=== PATIENT | female | born 1955 | race Asian ===

== ENCOUNTER 2020-02-09 08:02 | Emergency (ER) | payer OTHER, SELFPAY ==
[~2020-02-09] VITALS: Ht 167.6 cm; Wt 99.8 kg
[2020-02-09 08:02] VITALS: BP_SYST 110
--- NOTE | 2020-02-09 08:02 | NUR ---
BROUGHT IN BY [facility]ED, REPORT GIVEN TO JAVIER
--- NOTE | 2020-02-09 08:10 | NUR ---
Patient presented to ER C/O Abdominal pain. Patient BIB BLS afebrile, skin pink & warm, nausea & vomiting, denies diarrhea, pain 9/10. Patient called ems from home for severe abdominal pain, PT states "it feels the way my Gallbladder hurt before surgery". PT reportsgall bladder Sx December 2019.
--- NOTE | 2020-02-09 08:25 | NUR ---
ER Dr. Elam at bedside examining patient.
[2020-02-09] MEDS ORDERED: NACL 0.9% 1,000 ML IV ONE (08:30)
[2020-02-09] MEDS ORDERED: MORPHINE 4 MG/ML INJ. SYRINGE IVP ONE ×2 (08:30→17:15)
[2020-02-09] MEDS ORDERED: FAMOTIDINE PF 20 MG/2 ML VIAL IVP ONE (08:30)
[2020-02-09] MEDS ORDERED: ONDANSETRON HCL 4 MG/2 ML VIAL IVP ONE ×2 (08:30→12:00)
--- NOTE | 2020-02-09 08:50 | NUR ---
IV start unsuccessful x2. Informed cupola charger insulation IV start needed.
[2020-02-09 08:52] LABS: BASOPHILS % (AUTO) 0.4 % (0.0-2.0); EOSINOPHILS % (AUTO) 0.1 % (0.0-4.0); HEMOGLOBIN 15.1 g/dL (12.0-16.0); LYMPHOCYTES # (AUTO) 1.5 K/uL (1.0-5.5); LYMPHOCYTES % (AUTO) 13.2 % (20.5-51.5); MEAN CORPUSCULAR HEMOGLOBIN 28 pg (27-31); MEAN CORPUSCULAR HGB CONC 32 % (32-36); MEAN CORPUSCULAR VOLUME 86 fL (79.0-98.0); MONOCYTES # (AUTO) 0.6 K/uL (0.0-1.0); MONOCYTES % (AUTO) 5.2 % (1.7-9.3); NEUTROPHILS # (AUTO) 9.1 K/uL (1.8-7.7); NEUTROPHILS % (AUTO) 81.1 % (40.0-70.0); PLATELET COUNT (AUTO) 166 K/uL (130-430); RED CELL DISTRIBUTION WIDTH 14.8 % (9.0-15.0); WHITE BLOOD COUNT (AUTO) 11.2 K/uL (4.8-10.8)
[2020-02-09 09:00] LABS: CALCIUM 8.9 mg/dL (8.4-11.0); CREATININE 0.72 mg/dL (0.55-1.30); POTASSIUM 3.9 mmol/L (3.5-5.1)
[2020-02-09 09:07] LABS: ALBUMIN 3.4 g/dL (3.4-4.8)
--- NOTE | 2020-02-09 09:20 | NUR ---
# 20 gauge angiocath placed to right forearm . Use of asceptic technique. Opsite placed over site. Blood return noted. Blood for lab drawn from site. Flushed with 10 cc of normal saline. No evidence of infiltration noted. Patient tolerated well.
[2020-02-09] MEDS ORDERED: PIPERACILLIN/TAZO 3.375 GM in NS 50 ML IV ONE (09:30)
--- NOTE | 2020-02-09 09:40 | NUR ---
[employer] kaufman in ED - 02/09/20 at 1036 by SDEDTD IV start unsuccessful x2. Informed charge lpn IV start needed.
[2020-02-09] MEDS ORDERED: PIPERACILLIN/TAZOBACTAM 3.375 GM/VIAL (ZOSYN) IV ONE (09:56)
--- NOTE | 2020-02-09 09:58 | NUR ---
Radiology staff at for ultrasound.
[2020-02-09 10:08] LABS: BILIRUBIN,URINE 2+ (NEGATIVE); BLOOD, URINE NEGATIVE (NEGATIVE); CLARITY/URINE SL CLOUDY (CLEAR); COLOR,URINE YELLOW (YELLOW); GLUCOSE,URINE NEGATIVE (NEGATIVE); KETONES,URINE NEGATIVE (NEGATIVE); LEUKOCYTE ESTERASE ,URINE 2+ (NEGATIVE); NITRITE, URINE NEGATIVE (NEGATIVE); PROTEIN URINE TRACE (NEGATIVE)
[2020-02-09 10:17] LABS: BACTERIA,URINE FEW /HPF (None Seen)
[2020-02-09] MEDS ORDERED: hydrALAZINE HCL 20 MG/ML VIAL IVP ONE ×2 (10:45→19:45)
[2020-02-09] MEDS ORDERED: hydrALAZINE HCL 20 MG/ML VIAL ONE (10:46)
--- NOTE | 2020-02-09 11:20 | NUR ---
[facility]
--- NOTE | 2020-02-09 11:39 | NUR ---
Patient reports pain 10/10, made Dr Elam aware.
--- NOTE | 2020-02-09 11:45 | NUR ---
ER Dr. Elam at bedside examining patient.
[2020-02-09] MEDS ORDERED: fentaNYL CITRATE/PF 100 MCG/2 ML AMP IVP ONE (12:00)
--- NOTE | 2020-02-09 12:10 | NUR ---
Report to Christiane JURADO
--- NOTE | 2020-02-09 12:26 | NUR ---
Pt medicated for pain as ordered, well tolerated.
--- NOTE | 2020-02-09 12:39 | NUR ---
SPOKE TO KENNY, PT SISTER, REQUESTED UPDATE REGARDING PT STATUS. [phone]
--- NOTE | 2020-02-09 14:25 | NUR ---
PT awake sitting up in [facility].
--- NOTE | 2020-02-09 14:41 | NUR ---
SPOKE TO ALLIE OREILLY EPRP, STATED [facility] OF [facility] IS REQUESTING FACESHEET OF PT. FAX: [phone]
--- NOTE | 2020-02-09 16:30 | NUR ---
Pt awake and requesting update on [facility] admission update. I informed PT er corporate secretary is i n contact with [place] [facility] no hospital assignment at this time.
--- NOTE | 2020-02-09 17:25 | NUR ---
patient reports abdominal pain 10/10. Made Dr. Hoang aware.
--- NOTE | 2020-02-09 17:35 | NUR ---
PT medicated per MD order.
--- NOTE | 2020-02-09 18:10 | NUR ---
Patient sleeping in [facility]
--- NOTE | 2020-02-09 19:14 | NUR ---
Report to Supriya JURADO
--- NOTE | 2020-02-09 19:15 | NUR ---
RECEVIED REPORT ADRIEN HERRERA FOR CONTINUATION OF CARE.
--- NOTE | 2020-02-09 19:45 | NUR ---
CALLED AND GAVE REPORT TO ADRIEN VASQUEZ AT [facility] PRIOR TO TRANSFER.
--- NOTE | 2020-02-09 19:45 | NUR ---
Patient to be transferred to [facility]. Is being transferred due to higher level of care. Receiving facility has accepting physician and available space. ER physician has signed transfer form. Patient or responsible libertarian has agreed to transfer and signed form. Patient belongings inventoried and will be sent with patient. Copy of nursing notes, lab reports, EKG, Physicians Orders and X-rays to be sent with patient. Report called to ADRIEN LANE at receiving facility. Receiving physician is DR. Ami PABLO. Ambulance service has been called for transfer. ETA is 2014.
--- NOTE | 2020-02-09 20:26 | NUR ---
REPORT GIVEN TO TISSUE PACKER PRIOR TO TRANSFER TO [facility].
[2020-02-09 20:27] VITALS: BP_SYST 148
== END 2020-02-09 20:26 | disposition short-term general hospital (02) ==
LOC: SED 08:02
DX: K85.10 Biliary acute pancreatitis without necrosis or infection (principal); I10 Essential (primary) hypertension
CPT/HCPCS: 36415; 76700; 80053; 81000; 83690; 85025; 87040; 87086; 87426; 96361; 96365; 96375; 96376; 99285; J0360; J2270; J2405; J2543; J3010; J3490; J7030; 93005